=== PATIENT | female | born 1980 | race Two or more races ===

== ENCOUNTER 2021-11-13 06:54 | Emergency (ER) | payer OTHER ==
[~2021-11-13] VITALS: Ht 160 cm; Wt 68.0 kg
[2021-11-13] MEDS ORDERED: METFORMIN HCL500 MG (07:26)
[2021-11-13] MEDS ORDERED: SKELAGESIC PO (13:42)
[2021-11-13] MEDS ORDERED: ULTRAM50 MG PO (13:42)
== END 2021-11-13 13:55 ==
LOC: ER 06:54
DX: R10.2 Pelvic and perineal pain (principal); K66.0 Peritoneal adhesions (postprocedural) (postinfection)

== ENCOUNTER 2024-01-11 14:11 | Emergency (ER) | payer OTHER ==
[~2024-01-11] VITALS: Ht 167.6 cm; Wt 47.2 kg
[~2024-01-11 14:11] MED LIST: METFORMIN HCL500 MG; SKELAGESIC PO; ULTRAM50 MG PO
[2024-01-11] MEDS ORDERED: MEPERIDINE HCL/PF 50 MG/ML VIAL IM STA (18:28)
[2024-01-11] MEDS ORDERED: PROMETHAZINE HCL 50 MG/ML AMPUL IM STA (18:29)
[2024-01-11] MEDS ORDERED: HYOSCYAMINE SULFATE 0.125 MG TAB.SUBL SL ONE (18:30)
[2024-01-11] MEDS ORDERED: HYOSCYAMINE SULFATE 0.125 MG TAB.SUBL ONE (18:50)
[2024-01-11] MEDS ORDERED: PROMETHAZINE HCL 25 MG/ML AMPUL ONE (18:50)
[2024-01-11] MEDS ORDERED: BARIUM SULFATE 450 ML ORAL.SUSP PO ONE (18:51)
[2024-01-11 19:19] LABS: HEMATOCRIT 40.6 % (36.0-45.00); HEMOGLOBIN 14.5 g/dL (12.0-15.00); MEAN CELL VOLUME 90.5 fL (80.00-100.00); MEAN CORPUSCULAR HEMOGLOBIN 32.3 pg (27.00-32.0); MEAN CORPUSCULAR HGB CONC 35.6 g/dl (32.0-36.0); PLATELET COUNT 342 K/uL (150-450); RED BLOOD COUNT 4.48 M/uL (4.00-6.00); RED CELL DISTRIBUTION WIDTH 12.6 % (11.5-14.5)
[2024-01-11 19:28] LABS: URINE APPEARANCE Clear; URINE BILIRRUBIN Negative (NEGATIVE); URINE BLOOD Trace; URINE COLOR Yellow; URINE GLUCOSE Negative (NEGATIVE); URINE LEUKOCYTE Negative; URINE NITRATE Negative; URINE PROTEIN Negative (NEGATIVE); URINE UROBILINOGEN 0.2 E.U./dl
[2024-01-11 19:29] LABS: URINE BACTERIA 15.1 uL (0.0-1933); URINE EPITHELIAL CELLS 1.5 uL (0.0-38.8); URINE RBC 8.8 uL (0.0-20.8)
[2024-01-11 19:34] LABS: URINE WBC 1.3 uL (0.0-23.2)
[2024-01-11 19:36] LABS: CALCIUM 10.1 mg/dL (8.5-10.1); CREATININE SERUM 0.65 mg/dL (0.55-1.02); GFR 98.13; INR 1.01; POTASSIUM 4.05 mEq/L (3.5-5.1); PROTHROMBIN TIME 10.6 SECONDS (9.0-11.5)
== END 2024-01-12 00:18 | disposition home or self-care (01) ==
LOC: ER 14:12
DX: R10.9 Unspecified abdominal pain (principal); Z88.6 Allergy status to analgesic agent; Z91.013 Allergy to seafood; Z91.018 Allergy to other foods
CPT/HCPCS: 36415; 74177; Q9965